=== PATIENT | female | born 2000 | race Hispanic/Latino ===

== ENCOUNTER 2022-09-05 22:00 | Inpatient (IN) | payer OTHER ==
[2022-09-05] MEDS ORDERED: NS w/ Oxytocin 30 units 500 ML ONE (23:31)
[2022-09-05] MEDS ORDERED: Lidocaine 1% (PF) 30 ML VIAL ONE (23:32)
[2022-09-06] MEDS ORDERED: Lidocaine 1% (PF) 30 ML VIAL SC PRN (00:29)
[2022-09-06] MEDS ORDERED: Promethazine HCl 25 MG/ML VIAL IM PRN (00:29)
[2022-09-06] MEDS ORDERED: Ondansetron PF 4 MG/2 ML Vial IVP PRN (00:29)
[2022-09-06] MEDS ORDERED: HYDROcodone/Acetaminophen 5/325 mg Tablet PO PRN (00:29)
[2022-09-06] MEDS ORDERED: Ibuprofen 800 MG TAB PO PRN (00:29)
[2022-09-06] MEDS ORDERED: hydrALAZINE 20 MG/ML VIAL SLOW IVP PRN ×2 (00:29→03:10)
[2022-09-06] MEDS ORDERED: NS w/ Oxytocin 30 units 500 ML IV SCH (00:30)
[2022-09-06 01:11] VITALS: BMI 29.2
[2022-09-06 01:22] LABS: Hemoglobin 9.6 g/dL (12.0-15.5); Mean Corpuscular HGB CONC 31.5 g/dL (32.0-36.0); Mean Corpuscular Hemoglobin 24.4 pg (27.0-33.0); Mean Corpuscular Volume 77.4 fl (81.6-98.3); Platelet Count 270 10x3/uL (150-450); RBC Distribution Width 15.8 % (11.5-14.5); Red Blood Cell (RBC) Count 3.94 10x6/uL (3.90-5.03); White Blood Cell (WBC) Count 10.5 10x3/uL (3.5-10.5)
[2022-09-06 02:02] LABS: Syphilis Antibody Nonreactive (Nonreactive); Syphilis Antibody Index 0.02 S/CO (<1.00 Non-Reactive)
[2022-09-06 02:05] LABS: HBSAg Index 0.18 S/CO (0-0.99); HIV (1/2) Antibody/Antigen Non-Reactive (NonReactive); HIV 1/2 INDEX 0.08 S/CO (<1.00); Hep B Surf Ag Non-Reactive S/CO (NonReactive)
[2022-09-06] MEDS ORDERED: Bisacodyl 10 MG SUPP PR PRN (03:10)
[2022-09-06] MEDS ORDERED: Lanolin Ointment 7 GM TUBE TOP PRN (03:10)
[2022-09-06] MEDS ORDERED: Boostrix 0.5 ML (Tdap) VIAL (>/=7 yrs of age) IM ONE (03:10)
[2022-09-06] MEDS ORDERED: Milk Of Magnesia 30 ML UDCUP PO PRN (03:10)
[2022-09-06 04:46] LABS: Hemoglobin 9.3 g/dL (12.0-15.5)
[2022-09-06] MEDS: Ibuprofen 800 MG TAB PO SCH ×3 (05:55→21:21)
[2022-09-06] MEDS: Docusate 100 MG CAP PO SCH ×2 (08:20→21:21)
[2022-09-06] MEDS: Prenatal Vitamin 1 TAB PO SCH (08:20)
[2022-09-06] MEDS: Ferrous Sulfate 325 MG TAB PO SCH ×2 (08:20→18:02)
[2022-09-06 12:51] LABS: Bilirubin Neg (Negative); Blood, Urine 250 (Negative); Clarity Clear (Clear); Glucose, Urine (Dipstick) Normal (Negative); Ketone, Urine Negative (Negative); Leukocyte 500 (Negative); Nitrite Negative (Negative); Protein, Urine (Dipstick) Negative (Neg-Trace); Specific Gravity, Urine 1.015 (1.005-1.030); Urobilinogen Normal mg/dL (Less than 2)
[2022-09-06 13:01] LABS: RBC/HPF 21-50 HPF (0-3)
[2022-09-06 13:02] LABS: Bacteria/HPF 1+ HPF (None Seen); Squamous Epithelial 0-3 HPF (0-3)
[2022-09-06 13:04] LABS: Amphetamine Not Detected (NotDetected); Barbiturates Screen Not Detected (NotDetected); Benzodiazepine Screen Not Detected (NotDetected); Cocaine Metabolite Screen Not Detected (NotDetected); Methadone Not Detected (NotDetected); Methamphetamine Not Detected (NotDetected); Opiate Screen Not Detected (NotDetected); Oxycodone Screen Not Detected (NotDetected); Phencyclidine (PCP) Not Detected (NotDetected); THC/Cannabinoid Screen Not Detected (NotDetected); Tricyclic Screen Not Detected (NotDetected)
[2022-09-07] MEDS: Ibuprofen 800 MG TAB PO SCH ×2 (06:13→14:13)
[2022-09-07] MEDS: Prenatal Vitamin 1 TAB PO SCH (08:08)
[2022-09-07] MEDS: Docusate 100 MG CAP PO SCH (08:08)
[2022-09-07] MEDS: Ferrous Sulfate 325 MG TAB PO SCH (08:08)
[2022-09-07 16:51] VITALS: TEMP 98.2
[2022-09-07 17:28] VITALS: BP 103/58
== END 2022-09-07 17:55 | disposition home or self-care (01) | DRG 769 ==
LOC: CSHLD 22:00 → UNDOADMIN 23:18 → CSHLD 09-06 00:30 → CSHPED 09-06 02:20
PROVIDERS: ADMIT Obstetrics & Gynecology; ATTEND Obstetrics & Gynecology
PROC: 0KQM0ZZ Repair Perineum Muscle, Open Approach (ICD-10-PCS; principal; 2022-09-06)
PROC: 10D17Z9 Manual Extraction of Products of Conception, Retained, Via Natural or Artificial Opening (ICD-10-PCS; 2022-09-06)
DX: O73.0 Retained placenta without hemorrhage (principal); O70.1 Second degree perineal laceration during delivery
CPT/HCPCS: 36415; 80306; 81001; 85027; 86762; 86780; 86850; 86900; 86901; 87340; 87389; 88307; 99285